=== PATIENT | male | born 1960 | race Caucasian/White ===

== ENCOUNTER → 2018-01-28 | Outpatient (CLI) | payer BC ==
[~2018-01-28] MED LIST: ACET325T38 PO; ASPI-983 PO; CATHETER FLUSH 10 ML SYR IV PRN; DOCU-143 PO; LISI20TA PO; PANT40TA2 PO; SIMV40TA4 PO; SIMV80TA3 PO
[2018-01-28 09:09] VITALS: BP 175/111
[2018-01-28 09:20] VITALS: BP 160/87
--- NOTE | 2018-01-28 18:36 | STRESS TEST ---
DATE OF SERVICE: 01/28/2018 PROCEDURE: Resting and post exercise technetium-99m Tetrofosmin SPECT CT imaging. ORDERING PHYSICIAN: Dr. Montoya. PRIMARY PHYSICIAN: Dr. Payne. CLINICAL DIAGNOSIS: Coronary artery disease. Baseline images were carried out after injection of 10.4 mCi of technetium-99m Tetrofosmin. Subsequently, exercise was carried out on a treadmill. Miles protocol was employed. He completed 10 minutes and 1 second of exercise time and attained 11.7 METS of workload and 105% of maximum predicted heart rate. Heart rate and blood pressure responses to exercise were normal. At peak exercise, there is considerable baseline artifact and ST segments cannot be interpreted. In the recovery phase, there does not appear to be significant ST segment depression. The test was stopped on account of fatigue. The patient received 29.2 mCi technetium-99m Tetrofosmin after he had attained more than 85% of maximum predicted heart rate and the exercise was continued for more than another minute. Overall, he tolerated the procedure well. Review of images at rest and following stress, does not indicate any distinct perfusion defects consistent with significant myocardial ischemia or infarction. Some degree of diaphragmatic attenuation is seen both at rest and following exercise. Gated images show normal global left ventricular systolic function with normal regional wall motion. Left ventricular ejection fraction is calculated to be 62%. Left ventricular end diastolic volume is 62 mL. TID is absent (0.93). CONCLUSIONS: 1. No evidence of any significant myocardial ischemia or infarction on this study. 2. Normal regional wall motion. 3. Normal global left ventricular systolic function with a calculated ejection fraction of 62%. Job ID: [id number] DocumentID: [id number] Dictated Date: 01/28/2018 16:04:04 Dna Sequencing Associate Date: 01/28/2018 18:35:49 Dictated By: LUIS ENRIQUE MONTOYA MD, MA, FACP, FACC,
== END ==
LOC: CARD 07:18
PROVIDERS: ATTEND Internal Medicine Cardiovascular Disease
DX: I25.10 Atherosclerotic heart disease of native coronary artery without angina pectoris (principal); I10 Essential (primary) hypertension; E78.5 Hyperlipidemia, unspecified; R00.2 Palpitations; R07.89 Other chest pain
CPT/HCPCS: 78452; 93017

== ENCOUNTER 2019-09-30 10:37 | Day surgery (SDC) | payer BC ==
[2019-09-30] VITALS (10 sets, daily range): BP systolic 132–158; BP diastolic 80–102
[~2019-09-30] VITALS: Ht 170 cm; Wt 76.9 kg
[~2019-09-30 10:37] MED LIST changes: -CATHETER FLUSH 10 ML SYR IV PRN; +SIMV80TA21 PO; -SIMV80TA3 PO
[2019-09-30] MEDS ORDERED: ceFAZolin 2 GM/50 ML PRE-MIX IV ONE (11:15)
[2019-09-30] MEDS ORDERED: LACTATED RINGERS 1,000 ML IV PRN (12:40)
[2019-09-30] MEDS ORDERED: fentaNYL INJECTION 100 MCG/2 ML AMP ONE (13:09)
[2019-09-30] MEDS ORDERED: proPOfol 200 MG/20 ML (DIPRIVAN) VIAL IV ONE (13:09)
[2019-09-30] MEDS ORDERED: LIDOCAINE PF 2% 5 ML (XYLOCAINE) VIAL ONE (13:09)
[2019-09-30] MEDS ORDERED: MIDAZOLAM 2 MG/2 ML (VERSED) VIAL ONE (13:09)
[2019-09-30] MEDS ORDERED: ONDANSETRON 4 MG/2 ML (SDV) Z0FRAN ONE (13:09)
[2019-09-30] MEDS ORDERED: SEVOFLURANE (ULTANE) 15 ML INHAL SOLN ONE ×3 (13:10→13:59)
[2019-09-30] MEDS ORDERED: LEVO750T9 PO (13:35)
[2019-09-30] MEDS ORDERED: BUP/EPI 0.5% 1:200,000 (SENSORCAINE) 30 ML VIAL ONE (13:36)
--- NOTE | 2019-09-30 13:52 | Progress Note-Pre Operative ---
Pre-Operative Progress Note H&P Reviewed The H&P was reviewed, patient examined and no changes noted. Date Seen by Provider: Sep 30, 2019 Time Seen by Provider: 13:00 Date H&P Reviewed: Sep 30, 2019 Time H&P Reviewed: 13:00 Pre-Operative Diagnosis: symptomatic left palm and right palm x2 foreign body YIMI CONNER MD Sep 30, 2019 13:52 POS
--- NOTE | 2019-09-30 13:54 | Progress Note-Post Operative ---
Post-Operative Progess Note Surgeon (s)/Manager Search Engine (s) Surgeon YIMI CONNER MD Manager Search Engine: none Pre-Operative Diagnosis symptomatic left palm and right palm x2 foreign body Post-Operative Diagnosis same Procedure & Operative Findings Date of Procedure 09/30/19 Procedure Performed/Findings removal foreign body left palm and right palm x2. Anesthesia Type general LMA Estimated Blood Loss Estimated blood loss (mL): minimal Specimens/Packing Specimens Removed none YIMI CONNER MD Sep 30, 2019 13:54 POS
[2019-09-30] MEDS ORDERED: ONDANSETRON 4 MG/2 ML (SDV) Z0FRAN IVP PRN ×2 (14:00→14:15)
[2019-09-30] MEDS ORDERED: HYDROcodone/APAP 5 MG/325 MG (LORTAB) TAB PO ONE (14:00)
[2019-09-30] MEDS ORDERED: morphine INJ 10 MG/ML 1ML (SYR OR VIAL) IVP PRN ×2 (14:00)
[2019-09-30] MEDS ORDERED: ACETAMINOPHEN 325 MG TABLET PO PRN (14:00)
--- NOTE | 2019-09-30 14:00 | Discharge Inst-Surgical ---
D/C Lap Instructions-UBALDO Follow Up Appt in 2 weeks Activity as tolerated Regular Diet keep hands clean/dry Symptoms to Report: Fever over 101 degree F, Nausea/Vomiting Infection Signs and Symptoms to report: Increased redness, Foul odor of wound, Increased drainage Bathing instructions: May shower Operative Area Clean/Dry; Keep incision clean/dry If any problems/questions: Contact your physician or go to Emergency Room YIMI CONNER MD Sep 30, 2019 14:00 POS
[2019-09-30] MEDS ORDERED: morphine INJ 10 MG/ML 1ML (SYR OR VIAL) IVP ONE (14:15)
[2019-09-30] MEDS ORDERED: PROMETHAZINE INJ 25 MG/ML (PHENERGAN) AMP IVP ONE (14:15)
[2019-09-30] MEDS ORDERED: HYDROmorphone 2 MG/ML VIAL (DILAUDID) IV ONE (14:15)
[2019-09-30] MEDS ORDERED: MEPERIDINE (DEMEROL) INJ 50 MG/ML IVP ONE (14:15)
--- NOTE | 2019-09-30 14:45 | NUR ---
TO AMB SURG FROM PAR PER CART. ALERT, DENIES PAIN. PO FLUIDS PROVIDED. LEFT HAND ELEVATED, ICE PACK ON, CMS CHECKS WNL. LEV WRAPPED DSG D/I TO LEFT HAND. X2 BANDAIDS INTACT TO RIGHT HAND SURGICAL SITES.
--- NOTE | 2019-09-30 15:26 | Anesthesia-General Post-Op ---
General Patient Condition Mental Status/LOC: Same as Preop Cardiovascular: Satisfactory Nausea/Vomiting: Absent Respiratory: Satisfactory Pain: Controlled Complications: Absent Post Op Complications Complications None Follow Up Care/Instructions Patient Instructions None needed. Anesthesia/Patient Condition Patient Condition Patient is doing well, no complaints, stable vital signs, no apparent adverse anesthesia problems. SULTANA MAYEN DO Sep 30, 2019 15:26 POS
--- NOTE | 2019-09-30 15:58 | NUR ---
NO CHANGE IN ASSESSMENT OF SURGICAL SITES. TAKING PO FLUIDS WITHOUT PROBLEM, UP TO BR WITH ASSIST, GAIT STEADY, ALERT AND CHEERFUL. REQUESTING DISMISSAL.
--- NOTE | 2019-09-30 18:26 | OPERATIVE REPORT ---
DATE OF SERVICE: 09/30/2019 ATTENDING PRIMARY CARE PHYSICIAN: Dr. Baird. PREOPERATIVE DIAGNOSES: Left thenar eminence foreign body, cellulitis, edema, right palm foreign body x2. POSTOPERATIVE DIAGNOSES: Left thenar eminence foreign body, cellulitis, edema, right palm foreign body x2. PROCEDURE: Removal of foreign body left thenar eminence and of the right palm x2. SURGEON: Robb Conner MD ANESTHESIA: General laryngeal mask airway. ESTIMATED BLOOD LOSS: Minimal. FINDINGS: A large wood splinter of the left thenar eminence with an abscess. The lesions of the right palm appeared to be chronic foreign body and the foreign body appeared to be plastic. DISPOSITION: The patient tolerated the procedure well. INDICATIONS: The patient is a 59-year-old male who was seen in the office for inflammation pain along the left thenar eminence for the past few days. 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 He reports that he was doing work and he did sustain a splinter to the left thenar eminence and over a few days significant amount of erythema, redness, swelling and pain ensued. He was seen by his primary care physician. An attempt was made to remove the foreign body; however, this could not be identified. There was a significant amount of edema as well as a pressure identified. He was then started on a different antibiotic. He also had reported two foreign bodies of the right palm, which have been chronic; however, are symptomatic and bothersome when he does uses hands. DESCRIPTION OF PROCEDURE: The patient was brought to the operating room and supine on the table. After adequate IV pain and sedating medications and general laryngeal mask airway intubation, the hands were prepped and draped in standard surgical fashion. We first proceeded with removal of the left thenar foreign body. The overlying skin was anesthetized using 0.5% Marcaine with epinephrine and a transverse skin incision made using a 15 blade. An abscess pocket was identified and within the abscess pocket, a large wooden splinter identified, removed intact. This was then irrigated and then packed with Nu Gauze. The hand was then cleaned and covered with gauze followed by a Speedy wrap and then a 1 inch River wrap. We then proceeded with removal of the two chronic foreign bodies of the right palm. The overlying skin was anesthetized using 0.5% Marcaine with epinephrine and transverse skin incision was made using a 15 blade. Using Adson pickups and debridement foreign bodies were identified, which were small with no surrounding redness, erythema as well as no abscess at both sites. These appeared to be plastic. Good hemostasis was observed and these small incisions sites were closed with Band-Aids. The patient tolerated the procedure well. We will have him keep the areas clean and dry and dressing changes on a daily basis and allowed to close by secondary intention. We will have him follow up in the office in 2 weeks. Job ID: [id number] DocumentID: [id number] Dictated Date: 09/30/2019 14:07:26 Parking Line Painter Date: 09/30/2019 18:26:21 Dictated By: ROBB CONNER MD MTDD
--- NOTE | 2019-10-02 02:56 | HISTORY AND PHYSICAL ---
DATE OF SERVICE: ADMISSION AND SURGERY ON: 09/30/2019 at [facility]. HISTORY OF PRESENT ILLNESS: The patient is a 59-year-old male who we have seen before in the past. He had a symptomatic lesion over the right chest wall that he had had for greater than one year and had medically treated several times; however, the lesion with reoccur. The lesion was then excised and found to be consistent with a basal cell cancer. 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 He states that he was helping his daughter with a project working with wood and a large splinter did traverses left hand along the thenar eminence several days ago. He then developed a significant amount of redness, swelling and pain. He was seen by his physician yesterday. An attempt was made to remove the foreign body; however, was unable to find it. There is a significant amount of swelling and again he is able to move it. There is some significant edema; however, at this time, there are good peripheral pulses and no neurologic symptoms or compartment syndrome. However, due to the inflammation, we will proceed with incision, drainage and removal of foreign body as well as possible fasciotomy at the thenar compartment is tight. He also reports that he has two small symptomatic foreign bodies of the right hand, which had been there for several months that he would like to have it removed as well. PAST MEDICAL HISTORY: Gastroesophageal reflux disease, hypercholesterolemia, hypertension. PAST SURGICAL HISTORY: Tonsillectomy, appendectomy, coronary artery bypass graft x2 vessels. ALLERGIES: No known drug allergies. MEDICATIONS: Protonix 40 mg daily, simvastatin 40 mg daily, lisinopril 20 mg daily, aspirin 81 mg daily. SOCIAL HISTORY: Negative for smoke, social alcohol. FAMILY HISTORY: Mother diabetes, myocardial infarction, hypertension, coronary artery disease. Father, myocardial infarction, coronary artery disease. VITAL SIGNS: Stable. Blood pressure 130/64. Current weight 175 pounds at 5 feet 8 inches. REVIEW OF SYSTEMS: Well-nourished male in no acute distress. He is not experiencing any shortness of breath or difficulty breathing. No chest pain, palpitations, diaphoresis. No nausea, vomiting, no diarrhea or constipation. No fever, chills, no recent inadvertent weight loss. All other review of systems negative. PHYSICAL EXAMINATION: CHEST: Clear. Good breath sounds bilaterally. HEART: Regular, no murmurs. EXTREMITIES: No lower extremity edema, negative Homans sign. HEENT: No scleral icterus. NECK: No cervical lymphadenopathy. ABDOMEN: Soft, nontender, nondistended. SKIN: Overlying the left thenar eminence along the flap, flexor aspect is a small puncture site with a significant amount of edema and pain upon palpation. There is also some surrounding cellulitis. He does not have any neurologic deficit and does have normal motor function. He also has two small openings along the palmar aspect of his right hand as well as wood foreign bodies that were embedded in the past as well. ASSESSMENT AND PLAN: A 59-year-old male with foreign body of the left thenar eminence and two of the right palm. The one on the left thenar eminence is larger and there is a significant infection as well as edema and we will proceed with incision, removal of foreign body and possible fasciotomy if indicated. We will also remove the two foreign bodies of the palm of the right hand. Job ID: [id number] DocumentID: [id number] Dictated Date: 09/29/2019 16:55:09 Speech Instructor Date: 09/29/2019 17:23:23 Dictated By: YIMI CONNER MD MTDD
== END 2019-09-30 15:58 | disposition home or self-care (01) ==
LOC: SDC 10:37
PROVIDERS: ATTEND Surgery
DX: S60.552A Superficial foreign body of left hand, initial encounter (principal); S60.551A Superficial foreign body of right hand, initial encounter; L03.114 Cellulitis of left upper limb; L02.512 Cutaneous abscess of left hand; I10 Essential (primary) hypertension; K21.9 Gastro-esophageal reflux disease without esophagitis; E78.5 Hyperlipidemia, unspecified; Z18.33 Retained wood fragments; Z18.2 Retained plastic fragments
CPT/HCPCS: 87070; 87075; 87077; 87186; 87205

== ENCOUNTER 2020-06-08 10:22 | Outpatient (RCR) | payer BC ==
[~2020-06-08 10:22] MED LIST changes: +ASPI-1238 PO; -ASPI-983 PO; +LEVO750T9 PO
== END 2020-09-06 | disposition home or self-care (01) ==
LOC: ONC 10:22
PROVIDERS: ATTEND Radiology Radiation Oncology
DX: C44.719 Basal cell carcinoma of skin of left lower limb, including hip (principal); I11.9 Hypertensive heart disease without heart failure; E78.00 Pure hypercholesterolemia, unspecified; K21.9 Gastro-esophageal reflux disease without esophagitis; X32.XXXA Exposure to sunlight, initial encounter; Z95.1 Presence of aortocoronary bypass graft; Z90.49 Acquired absence of other specified parts of digestive tract; Z90.89 Acquired absence of other organs; Z98.890 Other specified postprocedural states
CPT/HCPCS: 99204

== ENCOUNTER → 2020-09-20 | Outpatient (CLI) | payer BC ==
[~2020-09-20] VITALS: Ht 175 cm; Wt 82.0 kg
[~2020-09-20] MED LIST changes: +CATHETER FLUSH 10 ML SYR IV PRN; +REGADENOSON 0.4 MG/5 ML SYR (LEXISCAN) IV ONE
[2020-09-20 13:02] VITALS: BP 130/92
--- NOTE | 2020-09-21 19:15 | STRESS TEST ---
DATE OF SERVICE: 09/20/2020 RESTING AND POST REGADENOSON TECHNETIUM-99M TETROFOSMIN SPECT CT IMAGING ORDERING PHYSICIAN: Dr. Montoya. PRIMARY PHYSICIAN: Dr. Baird. CLINICAL DIAGNOSES: Chest discomfort, coronary artery disease. Baseline images were carried out after injection of 9.91 mCi of technetium-99m Tetrofosmin. This was followed by 0.4 mg regadenoson and 28.7 mCi of technetium-99m Tetrofosmin for stress imaging. The electrocardiogram showed sinus rhythm at baseline. It did not change significantly with regadenoson infusion. The patient noted headache following regadenoson infusion, which resolved in a few minutes. Review of images at rest and following stress does not indicate any significant perfusion defects consistent with significant myocardial ischemia or infarction. Gated images show normal global left ventricular systolic function with normal regional wall motion. Left ventricular ejection fraction is calculated to be 63%. Left ventricular end diastolic volume is 72 mL. TID is absent (0.97). CONCLUSIONS: 1. No evidence of any significant myocardial ischemia or infarction study. 2. Normal regional wall motion. 3. Normal global left ventricular systolic function with a calculated ejection fraction of 63%. Job ID: [id number] DocumentID: [id number] Dictated Date: 09/21/2020 15:59:51 Program Arranger Date: 09/21/2020 19:15:27 Dictated By: LUIS ENRIQUE MONTOYA MD, MA, FACP, FACC,
== END ==
LOC: CARD 11:34
PROVIDERS: ATTEND Internal Medicine Cardiovascular Disease
DX: I25.10 Atherosclerotic heart disease of native coronary artery without angina pectoris (principal); I10 Essential (primary) hypertension; E78.49 Other hyperlipidemia; Z72.0 Tobacco use
CPT/HCPCS: 78452; 93017; A9502

== ENCOUNTER → 2022-10-25 | Outpatient (CLI) | payer BC ==
[~2022-10-25] MED LIST changes: -CATHETER FLUSH 10 ML SYR IV PRN; -REGADENOSON 0.4 MG/5 ML SYR (LEXISCAN) IV ONE
--- NOTE | 2022-10-25 16:25 | Diagnostic Imaging Report ---
PROCEDURE: CT urinary tract, rule out kidney stone. TECHNIQUE: Multiple contiguous axial images were obtained through the abdomen and pelvis without the use of intravenous contrast. Auto Exposure Controls were utilized during the CT exam to meet ALARA standards for radiation dose reduction. INDICATION: Right abdominal pain. Unenhanced images of liver, pancreas, adrenal glands and spleen are unremarkable. Note is made of small calcified stones within the lumen of the gallbladder without gallbladder wall thickening. There is an approximately 2.4 cm cyst within the right kidney. There is no evidence of urinary tract calculus or obstruction. There is focal dilatation of distal small bowel loop in the right lower quadrant. No focal inflammation or organized fluid collection is seen. There is mild extension of fat into the inguinal canals. Unopacified bladder is unremarkable. IMPRESSION: No evidence of acute abnormality although there is cholelithiasis. Focal dilatation of distal small bowel loop could potentially represent Meckel's diverticulum. No inflammation is identified. Dictated by: Dictated on workstation # [id number]
== END ==
LOC: RAD 15:50
PROVIDERS: ATTEND Internal Medicine
DX: R10.9 Unspecified abdominal pain (principal)
CPT/HCPCS: 74176

== ENCOUNTER 2023-04-19 08:09 | Outpatient (RCR) | payer BC | END 2023-04-24 | disposition home or self-care (01) | PROVIDERS: ATTEND Internal Medicine | DX: M54.6 Pain in thoracic spine (principal) ==

== ENCOUNTER 2023-05-16 10:29 | Outpatient (RCR) | payer BC | END 2023-05-24 | disposition home or self-care (01) | PROVIDERS: ATTEND Internal Medicine | DX: M54.6 Pain in thoracic spine (principal) ==

== ENCOUNTER 2023-06-18 08:00 | Outpatient (RCR) | payer BC | END 2023-06-24 | disposition home or self-care (01) | PROVIDERS: ATTEND Internal Medicine | DX: M54.6 Pain in thoracic spine (principal) ==

== ENCOUNTER 2023-06-25 13:39 | Outpatient (RCR) | payer BC | END 2023-07-25 | disposition home or self-care (01) | PROVIDERS: ATTEND Internal Medicine | DX: M54.6 Pain in thoracic spine (principal) ==

== ENCOUNTER 2023-09-20 15:07 | Outpatient (RCR) | payer BC | END 2023-09-24 | disposition home or self-care (01) | PROVIDERS: ATTEND Internal Medicine | DX: M54.6 Pain in thoracic spine (principal) ==

== ENCOUNTER → 2023-10-04 | Outpatient (CLI) | payer BC ==
--- NOTE | 2023-10-04 16:55 | Diagnostic Imaging Report ---
EXAMINATION: MRI lumbar spine, 10/04/2023. TECHNIQUE: Multiplanar, multisequence MRI of the lumbar spine was performed without contrast. INDICATION: Low back pain, right leg radiculopathy. FINDINGS: There is normal height and alignment of the vertebral bodies with the exception of minimal grade 1 retrolisthesis at L5-S1. Tip of the conus is unremarkable in appearance and location. L1-L2: Bilateral facet hypertrophy noted. No central stenosis. There is [id number] bilateral neural foraminal stenosis. L2-L3: Bilateral facet and ligamentum flavum hypertrophy noted with a mild broad-based bulging disc. No central narrowing. There is moderate bilateral neural foraminal stenosis. L3-L4: There is intervertebral disc space narrowing and disc desiccation. There is bilateral facet and ligamentum flavum hypertrophy. Broad-based bulging disc is noted. There is mild central stenosis. There is severe bilateral neural foraminal narrowing. L4-L5: There is intervertebral disc space narrowing and disc desiccation. There is bilateral facet and ligamentum flavum hypertrophy. There is a broad-based bulging disc, left paracentral in nature, with secondary moderate central narrowing and left lateral recess narrowing as well. There is severe bilateral neural foraminal stenosis. L5-S1: There is a broad-based bulging disc with bilateral facet and ligamentum flavum hypertrophy. Secondary moderate central narrowing with narrowing of the lateral recesses bilaterally. There is severe bilateral neural foraminal stenosis. Within the intra-abdominal structures, a cystic lesion is noted in the right kidney with no acute abnormalities. IMPRESSION: 1. Multilevel degenerative findings as detailed above with multilevel bilateral severe neural foraminal stenosis. Moderate central narrowing seen at L4-L5. See above discussion for detailed description of each level. Dictated by: Dictated on workstation # [id number]
== END ==
LOC: RAD 13:20
PROVIDERS: ATTEND Internal Medicine
DX: M51.26 Other intervertebral disc displacement, lumbar region (principal); M48.061 Spinal stenosis, lumbar region without neurogenic claudication; M51.27 Other intervertebral disc displacement, lumbosacral region; M89.38 Hypertrophy of bone, other site; N28.1 Cyst of kidney, acquired
CPT/HCPCS: 72148